=== PATIENT | female | born 1970 | race Two or more races ===

== ENCOUNTER 2024-02-07 11:28 | Emergency (ER) | payer OTHER ==
[~2024-02-07] VITALS: Ht 154.9 cm; Wt 56.7 kg
[2024-02-07] MEDS ORDERED: ORPHENADRINE CITRATE 30 MG/ML AMPUL IM STA (13:25)
[2024-02-07] MEDS ORDERED: KETOROLAC TROMETHAMINE 60 MG VIAL IM STA (13:25)
[2024-02-07] MEDS ORDERED: KETOROLAC TROMETHAMINE 60 MG VIAL IM ONE (13:36)
[2024-02-07] MEDS ORDERED: ORPHENADRINE CITRATE 30 MG/ML AMPUL ONE (13:37)
== END 2024-02-07 14:49 | disposition home or self-care (01) ==
LOC: ER 11:28
DX: M62.830 Muscle spasm of back (principal)